=== PATIENT | male | born 1945 | race Caucasian/White ===

== ENCOUNTER → 2016-10-13 | Outpatient (CLI) | payer OTHER, BC ==
[~2016-10-13] MED LIST: ASPI81TA28 PO; ATOR-26 PO; CINN1CAP2 PO; DSWCR TOP; GLC500 PO; GLIM2TAB2 PO; LOSA1TAB PO; METO50TA7 PO; MULT-506 PO
[2016-10-13 17:28] LABS: ESTIMATED AVERAGE GLUCOSE 154 mg/dl; HA1C FLAG Normal (Normal)
[2016-10-13 19:43] LABS: BLOOD UREA NITROGEN 16 mg/dl (7-18); GLUCOSE 141 mg/dl (70-99)
[2016-10-13 19:44] LABS: ALT/SGPT 42 U/L (12-78); AST/SGOT 24 U/L (15-37); BUN/CREATININE RATIO 17.4 (10-20); CALCIUM 8.9 mg/dl (8.5-10.1); CARBON DIOXIDE 25 mmol/L (21-32); CHLORIDE 105 mmol/L (98-107); CHOLESTEROL 130 mg/dl (0-200); CREATININE 0.93 mg/dl (0.60-1.40); SODIUM 140 mmol/L (136-145)
[2016-10-13 19:46] LABS: ALB/GLOB RATIO 1.4 (0.9-2); ALKALINE PHOSPHATASE 76 U/L (45-117); CHOLESTEROL/HDL RATIO 4.2; HDL CHOLESTEROL 31 mg/dl; LDL CHOLESTEROL CALCULATED 79 mg/dl; TRIGLYCERIDES 100 mg/dl (0-150); VERY LOW DENSITY LIPOPROT CALC 20 mg/dl
== END | disposition home or self-care (01) ==
LOC: C.LABBFT 12:10
PROVIDERS: ATTEND Internal Medicine
DX: E11.51 Type 2 diabetes mellitus with diabetic peripheral angiopathy without gangrene (principal)

== ENCOUNTER → 2017-03-30 | Outpatient (CLI) | payer BC, OTHER ==
[2017-03-30 17:39] LABS: HEMATOCRIT 44.6 % (42-52); MEAN CELL VOLUME 89.2 fL (80-100); MEAN CORPUSCULAR HEMOGLOBIN 31.2 pg (25-34); PLATELET COUNT 189 K/uL (130-400); WHITE BLOOD COUNT 6.43 K/uL (4.8-10.8)
[2017-03-30 18:57] LABS: ALT/SGPT 48 U/L (12-78); BLOOD UREA NITROGEN 15 mg/dl (7-18); CALCIUM 9.4 mg/dl (8.5-10.1); CARBON DIOXIDE 27 mmol/L (21-32); CHLORIDE 107 mmol/L (98-107); CHOLESTEROL 152 mg/dl (0-200); CREATININE 0.83 mg/dl (0.60-1.40); GLUCOSE 196 mg/dl (70-99); POTASSIUM 4.7 mmol/L (3.5-5.1); SODIUM 141 mmol/L (136-145)
[2017-03-30 19:08] LABS: ALB/GLOB RATIO 1.2 (0.9-2); ALKALINE PHOSPHATASE 103 U/L (45-117); AST/SGOT 26 U/L (15-37); CHOLESTEROL/HDL RATIO 5.6; HDL CHOLESTEROL 27 mg/dl; LDL CHOLESTEROL CALCULATED 95 mg/dl; TRIGLYCERIDES 151 mg/dl (0-150); VERY LOW DENSITY LIPOPROT CALC 30 mg/dl
[2017-03-31 06:32] LABS: ESTIMATED AVERAGE GLUCOSE 169 mg/dl; HA1C FLAG Normal (Normal)
== END | disposition home or self-care (01) ==
LOC: C.LABBFT 11:31
PROVIDERS: ATTEND Internal Medicine
DX: E11.51 Type 2 diabetes mellitus with diabetic peripheral angiopathy without gangrene (principal)

== ENCOUNTER → 2017-10-05 | Outpatient (CLI) | payer OTHER, BC ==
[~2017-10-05] MED LIST changes: -METO50TA7 PO; +METO50TA8 PO
[2017-10-05 17:06] LABS: HEMATOCRIT 46.4 % (42-52); HEMOGLOBIN 16.4 g/dL (14.0-18.0); MEAN CELL VOLUME 90.4 fL (80-100); MEAN CORPUSCULAR HGB CONC 35.3 g/dl (32-36); MEAN PLATELET VOLUME 10.6 fL (7.4-10.4); PLATELET COUNT 194 K/uL (130-400); RED CELL DISTRIBUTION WIDTH SD 42.9 fL (36.4-46.3); WHITE BLOOD COUNT 7.76 K/uL (4.8-10.8)
[2017-10-05 18:50] LABS: ALBUMIN 3.6 gm/dl (3.4-5.0); ALT/SGPT 46 U/L (12-78); AST/SGOT 20 U/L (15-37); BLOOD UREA NITROGEN 15 mg/dl (7-18); CALCIUM 8.6 mg/dl (8.5-10.1); CARBON DIOXIDE 29 mmol/L (21-32); CREATININE 1.03 mg/dl (0.60-1.40); GLUCOSE 109 mg/dl (70-99); POTASSIUM 4.5 mmol/L (3.5-5.1); SODIUM 141 mmol/L (136-145)
[2017-10-05 19:01] LABS: ALKALINE PHOSPHATASE 86 U/L (45-117); CHOLESTEROL 117 mg/dl (0-200); LDL CHOLESTEROL CALCULATED 66 mg/dl; TOTAL PROTEIN 6.7 gm/dl (6.4-8.2)
[2017-10-06 06:16] LABS: HEMOGLOBIN A1C 6.9 % (4.5-5.6)
== END | disposition home or self-care (01) ==
LOC: C.LABBFT 15:23
PROVIDERS: ATTEND Internal Medicine
DX: E11.51 Type 2 diabetes mellitus with diabetic peripheral angiopathy without gangrene (principal); I10 Essential (primary) hypertension; Z12.5 Encounter for screening for malignant neoplasm of prostate

== ENCOUNTER → 2018-05-01 | Outpatient (CLI) | payer OTHER, BC ==
[2018-05-01 17:43] LABS: ALBUMIN 3.9 gm/dl (3.4-5.0); ALKALINE PHOSPHATASE 105 U/L (45-117); ALT/SGPT 52 U/L (12-78); AST/SGOT 25 U/L (15-37); BLOOD UREA NITROGEN 15 mg/dl (7-18); CALCIUM 8.5 mg/dl (8.5-10.1); CARBON DIOXIDE 25 mmol/L (21-32); CHOLESTEROL 158 mg/dl (0-200); CREATININE 0.92 mg/dl (0.60-1.40); GLUCOSE 296 mg/dl (70-99); LDL CHOLESTEROL CALCULATED 62 mg/dl; POTASSIUM 4.3 mmol/L (3.5-5.1); SODIUM 136 mmol/L (136-145); TOTAL PROTEIN 6.6 gm/dl (6.4-8.2)
[2018-05-02 07:11] LABS: HEMOGLOBIN A1C 8.3 % (4.5-5.6)
== END | disposition home or self-care (01) ==
LOC: C.LABBFT 15:14
PROVIDERS: ATTEND Physician Assistant Medical
DX: E11.9 Type 2 diabetes mellitus without complications (principal)

== ENCOUNTER 2022-10-20 17:59 | Inpatient (IN) ==
[2022-10-20] MEDS ORDERED: SODIUM CHLORIDE 0.9% 1000ML 1,000 ML IV SCH (18:45)
[2022-10-20 20:06] LABS: Basophils # (auto) 0.05 K/uL (0-0.2); Basophils % (auto) 0.4 %; Eosinophils # (auto) 0.03 K/uL (0-0.50); Eosinophils % (auto) 0.2 %; Hematocrit (blood only) 46.6 % (40.1-51.0); Hemoglobin 16.4 g/dl (14.0-18.0); Immature Granulocytes # (auto) 0.07 K/uL (0.00-0.02); Immature Granulocytes % (auto) 0.5 %; Lymphocytes # (auto) 0.47 K/uL (1.2-3.4); Lymphocytes % (auto) 3.5 %; Mean Corpuscular Hgb Conc 35.2 g/dL (32.0-36.0); Mean Corpuscular Volume 88.1 fL (80.0-100.0); Monocytes # (auto) 1.12 K/uL (0.24-0.82); Monocytes % (auto) 8.4 %; Neutrophils # (auto) 11.66 K/uL (1.4-6.5); Platelet Count 144 K/uL (130-400); RDW Coefficient of Variation 13.1 % (11.5-14.5); RDW Standard Deviation 42.1 fL (36.4-46.3); Red Blood Count 5.29 M/uL (4.63-6.08)
[2022-10-20 20:33] LABS: Alanine Aminotransferase 489 U/L (7-52); Albumin Globulin Ratio 1.5 (0.9-2); Alkaline Phosphatase 140 U/L (34-104); Anion Gap 9 (3-11); Aspartate Aminotransferase 403 U/L (13-39); BUN Creatinine Ratio 23.5 (10-20); Bilirubin,Total 1.4 mg/dl (0.2-1.0); Blood Urea Nitrogen 20 mg/dl (6-23); Calcium 9.2 mg/dl (8.5-10.1); Carbon Dioxide 24 mmol/L (21-32); Chloride 102 mmol/L (98-107); Est GFR (African American) 96.1 ml/min; Est GFR (Non-African American) 82.9 ml/min; Globulin 2.7 gm/dl (2.5-4.0); Glucose 349 mg/dl (70-99(Fasting)); Potassium 4.4 mmol/L (3.5-5.1); Sodium 135 mmol/L (136-145); Total Protein 6.7 gm/dl (6.0-8.3)
[2022-10-20 21:11] LABS: Appearance Urine Clear (Clear); Bacteria Urine Automated Negative (Negative); Bilirubin Urine Negative (Negative); Blood Urine Negative (Negative); Cast Urine Automated 0 /lpf (0-5); Color Urine Dark Yellow; Epithelial Cell Urine Auto 0-5 /lpf (0-5); Glucose Urine UA 3+ (Negative); Ketones Urine 1+ (Negative); Leukocyte Esterase Urine Negative (Negative); Nitrite Urine Negative (Negative); Protein Urine Trace (Negative); RBC Urine Automated 0-4 /hpf (0-4); Specific Gravity Urine 1.043 (1.000-1.030); Urobilinogen Urine Negative (Negative); pH Urine 5.5 (4.5-7.5)
--- NOTE | 2022-10-20 22:00 | Emergency Department Note ---
Impression & Plan Hyperglycemia, Flu-like symptoms, Leukocytosis, Pneumonia, Influenza A, Elevated lactic acid level, Rigors ED Provider Note NAME: NICOLE HENDRIX AGE: 77 SEX: M : 1945 ARRIVES VIA: Ambulance INFORMANT: [Patient][family] ED PROVIDER(S): [Linden Pickens MD] CHIEF COMPLAINT: Hyperglycemia HISTORY OF PRESENT ILLNESS: The patient is a 77-year-old male who states that about 5 hours ago while eating dinner, he suddenly began having shakes and felt cold. The patient had a blood sugar in the 400s. The patient was brought for evaluation. There has been no abdominal or chest pain. No vomiting or diarrhea, no urinary complaints. The patient did have a cold about a week ago but feels he is recovering. He had felt fine earlier in the day. PMHx/PSHx: See Below SOCIAL HISTORY: See Below. PHYSICAL EXAM: GENERAL: Patient is in no acute distress. HEENT: No acute trauma, normocephalic atraumatic, mucous membranes moist, no nasal congestion. NECK: No stridor, no adenopathy, no meningismus, trachea is midline. LUNGS: Diminished breath sounds bilaterally with an occasional scattered crackle, no wheezing, no respiratory distress HEART: Mildly tachycardic, slightly irregular rhythm. No murmurs. ABDOMEN: Soft, nontender, bowel sounds positive, no peritonitis. EXTREMITIES: No cyanosis or edema, full range of motion of all the joints without pain or difficulty, no signs for acute trauma. NEUROLOGIC: Oriented x 3, no acute motor or sensory deficits, no focal weakness. SKIN: No rash, no jaundice, no diaphoresis. Skin seems warm to touch. DIFFERENTIAL DIAGNOSIS: Sepsis, UTI, pyelonephritis, pneumonia, COVID-19, RSV, influenza, metabolic abnormality, hyperglycemia, electrolyte abnormality, cardiac ischemia, cellulitis, bacteremia, as well as other pathologies. EMERGENCY DEPARTMENT COURSE/PROCEDURES: Prior/Outside records reviewed: EMS records. ECG per my interpretation: Indication was tachycardia. The ECG shows a very poor baseline and artifact but the rhythm appears to be sinus tachycardia with PACs. The rate is 101. There is an old septal infarct. There are inverted T waves noted in the lateral leads. No obvious ST elevation. No PVCs. The QTc is 357. Compared to an ECG from 10 October 2011, the rate has increased, PACs are now present. Continuous Cardiac Monitoring per my interpretation: An order was placed for continuous cardiac monitoring. The monitor shows a rate of 102 with sinus tachycardia and PACs. MEDICAL DECISION MAKING: There is a mild leukocytosis, this certainly could be consistent with infection. There was a normal hemoglobin and platelet count. Sugar was high at around 350. Lactic acid level was elevated. This lactic acid elevation could suggest infection versus dehydration. There were some elevated liver enzymes. No pancreatitis. Urinalysis shows glucose, no infection. COVID and RSV test were negative. Influenza test was positive. Chest film shows a potential patchy infiltrate at the left lower lung. There was no pneumothorax. Abdominal and pelvis CT did not show any evidence for an acute surgical process. On exam, the patient was slightly tachycardic and warm to the touch. The patient was given IV saline, 2 L in total. He was given oral Tamiflu for the influenza finding. He received IV cefepime as empiric antibiotic coverage, he was given oral Tylenol. Presents with what sounds like rigors. He has a leukocytosis. He is influenza A positive. He is hyperglycemic and likely somewhat dehydrated. I am concerned about the start of a pneumonia based on this chest x-ray and his complaints. Hospitalization is warranted. I spoke with the patient and case management, the on-call hospitalist was consulted. DISPOSITION: The patient's finding and presentation warrant a hospital stay. Past Med/Surg History Medical History CAD (coronary artery disease) Cataract Chronic obstructive pulmonary disease history obtained from pt's ; pt unable to verify; no inh PT AND DENY COPD UPON PAT PHONE INTERVIEW 08/24/20 DM type 2 (diabetes mellitus, type 2) NIDDM History of colon polyps History of lichen planus History of prostate cancer brachytherapy 2009 Hypertension PATIENT DENIES Myocardial Infarction 1991 Surgical History History of cardiac cath History of carpal tunnel release History of colonoscopy History of left cataract surgery History of prostate biopsy History of surgery on extremity History of tooth extraction S/P CABG x 3 (1992) Family History Brother Hepatitis Coronary heart disease Alcoholism Myocardial infarction Father Laryngeal cancer Alcoholism Emphysema, unspecified Tobacco use Throat cancer Sister Diabetes Mother Cirrhosis Daughter Colorectal cancer Other No family history of adverse response to anesthesia Denies family history of Ovarian cancer Prostate cancer Breast cancer Social History Smoking Status: Former smoker Tobacco Type: Cigarettes Age Started Using Tobacco: 6; Age Quit Using Tobacco: 48; packs per day: 1; Cigarettes Per Day: 20; Second Hand Exposure: No; Hx Alcohol Use: Yes Alcohol type: wine Alcohol Intake Frequency: Monthly or Less Hx Substance Use: No Preferred Language: Tajik Communication Ability: Effective Visual Impairment: No Limitations Hearing Ability: Normal Vp Talent Management Required: No Beliefs That Will Affect Care: None marital status: Current Living Situation: Spouse current occupational status: employed current occupation: catering truck driver Feels Safe at Home: Yes caffeine: Yes Dental Care, Regularly: No Physical Activity Frequency: Does not Exercise Seatbelt Use: always Sunscreen Use: No Assistive Devices: Denture - Upper, Denture - Lower and Glasses Allergies Allergies Allergy/AdvReac Type Severity Reaction Status Date / Time No Known Allergies Allergy Verified 10/20/22 21:40 Home Meds Home Medications Medication Instructions Recorded Confirmed lancets 33 gauge (OneTouch Delica #100 ea 04/29/19 07/26/22 Lancets) aspirin 81 mg tablet,delayed 81 mg PO QAM 05/25/20 10/20/22 release (Adult Low Dose Aspirin) desonide 0.05 % topical cream 1 appln topical BID PRN LICHEN 08/24/20 10/20/22 PLANUS Previous Rx's Medication Instructions Recorded blood sugar diagnostic (VULCUNTouch #100 ea 01/27/20 Verio test strips) triamcinolone acetonide 0.5 % 1 applic topical TID PRN LICHEN 05/17/21 topical cream PLANUS #15 grams atorvastatin 80 mg tablet 80 mg PO HS #90 tabs 12/13/21 metoprolol succinate 50 mg 50 mg PO BID #180 tabs 03/04/22 tablet,extended release 24 hr glimepiride 4 mg tablet 4 mg PO BID #180 tabs 09/07/22 losartan 25 mg tablet 25 mg PO QAM #90 tabs 09/07/22 metformin 1,000 mg tablet 1,000 mg PO BID #180 tabs 09/07/22 Results & Data (ED) Vital Signs Vital Signs - 24 hr 10/20/22 18:27 10/20/22 21:13 10/20/22 21:29 Temperature 37.3 C 37.3 C Temperature Source Temporal Artery Scan Oral Pulse Rate 102 H Pulse Rate [Apical] Pulse Rate from SpO2 Sensor Respiratory Rate 19 20 Respiratory Effort / Characteristics Non-Labored Spontaneous Non-Labored Respiratory Depth Normal Normal Respiratory Pattern Regular Regular Blood Pressure 148/72 H Blood Pressure [Right Arm] 146/71 H Blood Pressure Mean 97 Blood Pressure Mean [Right Arm] 96 Blood Pressure Position Sitting Blood Pressure Position [Right Arm] Pulse Oximetry 92 91 Oxygen Delivery Method Room Air Room Air Sepsis Recent Fever Within 48 Hours No Sepsis New/Unexplained Change in Mental Status No Sepsis Action Taken by Nursing No Action Required 10/20/22 21:30 10/20/22 22:30 10/20/22 22:40 Temperature Temperature Source Pulse Rate 106 H 108 H Pulse Rate [Apical] 102 H Pulse Rate from SpO2 Sensor 106 H 107 H Respiratory Rate 20 20 22 Respiratory Effort / Characteristics Respiratory Depth Respiratory Pattern Blood Pressure Blood Pressure [Right Arm] 154/72 H Blood Pressure Mean Blood Pressure Mean [Right Arm] 99 Blood Pressure Position Blood Pressure Position [Right Arm] Lying Pulse Oximetry 93 94 93 Oxygen Delivery Method Room Air Sepsis Recent Fever Within 48 Hours Sepsis New/Unexplained Change in Mental Status Sepsis Action Taken by [place]way Medications Current Medication List: was personally reviewed by me Laboratory Data Attestation: I reviewed the patient's lab results. 10/20/22 19:53 10/20/22 19:53 Lab Results 10/20/22 10/20/22 10/20/22 Range/Units 18:32 19:49 19:53 WBC 13.40 H (4.8-10.8) K/ul RBC 5.29 (4.63-6.08) M/uL Hgb 16.4 (14.0-18.0) g/dl Hct 46.6 (40.1-51.0) % MCV 88.1 (80.0-100.0) fL MCH 31.0 (25.0-34.0) pg MCHC 35.2 (32.0-36.0) g/dL RDW Std Deviation 42.1 (36.4-46.3) fL RDW Coeff of [place] 13.1 (11.5-14.5) % Plt Count 144 (130-400) K/uL MPV 10.0 (9.4-12.4) fL Immature Gran % (Auto) 0.5 % Neut % (Auto) 87.0 % Lymph % (Auto) 3.5 % [place] % (Auto) 8.4 % Eos % (Auto) 0.2 % Baso % (Auto) 0.4 % Neut # (Auto) 11.66 H (1.4-6.5) K/uL Lymph # (Auto) 0.47 L (1.2-3.4) K/uL [place] # (Auto) 1.12 H (0.24-0.82) K/uL Eos # (Auto) 0.03 (0-0.50) K/uL Baso # (Auto) 0.05 (0-0.2) K/uL Immature Gran # (Auto) 0.07 H (0.00-0.02) K/uL Sodium (136-145) mmol/L Potassium (3.5-5.1) mmol/L Chloride (98-107) mmol/L Carbon Dioxide (21-32) mmol/L Anion Gap (3-11) BUN (6-23) mg/dl Creatinine (0.6-1.4) mg/dl Est Cr Clr Drug Dosing Est GFR ( Amer) ml/min Est GFR (Non-Af Amer) ml/min BUN/Creatinine Ratio (10-20) Glucose (70-99(Fasting)) mg/dl POC Glucose 383 H* (70-99) mg/dl Lactate (0.4-2.0) mmol/L Calcium (8.5-10.1) mg/dl Total Bilirubin (0.2-1.0) mg/dl AST (13-39) U/L ALT (7-52) U/L Alkaline Phosphatase (34-104) U/L Total Protein (6.0-8.3) gm/dl Albumin (3.4-5.0) gm/dl Globulin (2.5-4.0) gm/dl Albumin/Globulin Ratio (0.9-2) Lipase (11-82) U/L Urine Color Urine Appearance (Clear) Urine pH (4.5-7.5) Ur Specific [place] (1.000-1.030) Urine Protein (Negative) Urine Glucose (UA) (Negative) Urine Ketones (Negative) Urine Blood (Negative) Urine Nitrite (Negative) Urine Bilirubin (Negative) Urine Urobilinogen (Negative) Ur Leukocyte Esterase (Negative) Urine WBC (Auto) (0-5) /hpf Urine RBC (Auto) (0-4) /hpf U Hyaline Cast (Auto) (0-5) /lpf U Epithel Cells (Auto) (0-5) /lpf Urine Bacteria (Auto) (Negative) SARS-CoV-2 (PCR) (Negative) Influenza Type A (PCR) (Neg) Influenza Type B (PCR) (Neg) RSV (RT-PCR) (Neg) SARS-CoV-2, RNA, NAAT NEGATIVE (NEGATIVE) 10/20/22 10/20/22 10/20/22 Range/Units 19:53 19:53 20:55 WBC (4.8-10.8) K/ul RBC (4.63-6.08) M/uL Hgb (14.0-18.0) g/dl Hct (40.1-51.0) % MCV (80.0-100.0) fL MCH (25.0-34.0) pg MCHC (32.0-36.0) g/dL RDW Std Deviation (36.4-46.3) fL RDW Coeff of [place] (11.5-14.5) % Plt Count (130-400) K/uL MPV (9.4-12.4) fL Immature Gran % (Auto) % Neut % (Auto) % Lymph % (Auto) % [place] % (Auto) % Eos % (Auto) % Baso % (Auto) % Neut # (Auto) (1.4-6.5) K/uL Lymph # (Auto) (1.2-3.4) K/uL [place] # (Auto) (0.24-0.82) K/uL Eos # (Auto) (0-0.50) K/uL Baso # (Auto) (0-0.2) K/uL Immature Gran # (Auto) (0.00-0.02) K/uL Sodium 135 L (136-145) mmol/L Potassium 4.4 (3.5-5.1) mmol/L Chloride 102 (98-107) mmol/L Carbon Dioxide 24 (21-32) mmol/L Anion Gap 9 (3-11) BUN 20 (6-23) mg/dl Creatinine 0.85 (0.6-1.4) mg/dl Est Cr Clr Drug Dosing Not Reportable Est GFR ( Amer) 96.1 ml/min Est GFR (Non-Af Amer) 82.9 ml/min BUN/Creatinine Ratio 23.5 H (10-20) Glucose 349 H* (70-99(Fasting)) mg/dl POC Glucose (70-99) mg/dl Lactate (0.4-2.0) mmol/L Calcium 9.2 (8.5-10.1) mg/dl Total Bilirubin 1.4 H (0.2-1.0) mg/dl AST 403 H (13-39) U/L ALT 489 H (7-52) U/L Alkaline Phosphatase 140 H (34-104) U/L Total Protein 6.7 (6.0-8.3) gm/dl Albumin 4.0 (3.4-5.0) gm/dl Globulin 2.7 (2.5-4.0) gm/dl Albumin/Globulin Ratio 1.5 (0.9-2) Lipase 32 (11-82) U/L Urine Color Dark Yellow Urine Appearance Clear (Clear) Urine pH 5.5 (4.5-7.5) Ur Specific [place] 1.043 H (1.000-1.030) Urine Protein Trace H (Negative) Urine Glucose (UA) 3+ H (Negative) Urine Ketones 1+ H (Negative) Urine Blood Negative (Negative) Urine Nitrite Negative (Negative) Urine Bilirubin Negative (Negative) Urine Urobilinogen Negative (Negative) Ur Leukocyte Esterase Negative (Negative) Urine WBC (Auto) 1-5 (0-5) /hpf Urine RBC (Auto) 0-4 (0-4) /hpf U Hyaline Cast (Auto) 0 (0-5) /lpf U Epithel Cells (Auto) 0-5 (0-5) /lpf Urine Bacteria (Auto) Negative (Negative) SARS-CoV-2 (PCR) (Negative) Influenza Type A (PCR) (Neg) Influenza Type B (PCR) (Neg) RSV (RT-PCR) (Neg) SARS-CoV-2, RNA, NAAT (NEGATIVE) 10/20/22 10/20/22 10/20/22 Range/Units 21:21 21:23 21:33 WBC (4.8-10.8) K/ul RBC (4.63-6.08) M/uL Hgb (14.0-18.0) g/dl Hct (40.1-51.0) % MCV (80.0-100.0) fL MCH (25.0-34.0) pg MCHC (32.0-36.0) g/dL RDW Std Deviation (36.4-46.3) fL RDW Coeff of [place] (11.5-14.5) % Plt Count (130-400) K/uL MPV (9.4-12.4) fL Immature Gran % (Auto) % Neut % (Auto) % Lymph % (Auto) % [place] % (Auto) % Eos % (Auto) % Baso % (Auto) % Neut # (Auto) (1.4-6.5) K/uL Lymph # (Auto) (1.2-3.4) K/uL [place] # (Auto) (0.24-0.82) K/uL Eos # (Auto) (0-0.50) K/uL Baso # (Auto) (0-0.2) K/uL Immature Gran # (Auto) (0.00-0.02) K/uL Sodium (136-145) mmol/L Potassium (3.5-5.1) mmol/L Chloride (98-107) mmol/L Carbon Dioxide (21-32) mmol/L Anion Gap (3-11) BUN (6-23) mg/dl Creatinine (0.6-1.4) mg/dl Est Cr Clr Drug Dosing Est GFR ( Amer) ml/min Est GFR (Non-Af Amer) ml/min BUN/Creatinine Ratio (10-20) Glucose (70-99(Fasting)) mg/dl POC Glucose 310 H* 292 H (70-99) mg/dl Lactate (0.4-2.0) mmol/L Calcium (8.5-10.1) mg/dl Total Bilirubin (0.2-1.0) mg/dl AST (13-39) U/L ALT (7-52) U/L Alkaline Phosphatase (34-104) U/L Total Protein (6.0-8.3) gm/dl Albumin (3.4-5.0) gm/dl Globulin (2.5-4.0) gm/dl Albumin/Globulin Ratio (0.9-2) Lipase (11-82) U/L Urine Color Urine Appearance (Clear) Urine pH (4.5-7.5) Ur Specific [place] (1.000-1.030) Urine Protein (Negative) Urine Glucose (UA) (Negative) Urine Ketones (Negative) Urine Blood (Negative) Urine Nitrite (Negative) Urine Bilirubin (Negative) Urine Urobilinogen (Negative) Ur Leukocyte Esterase (Negative) Urine WBC (Auto) (0-5) /hpf Urine RBC (Auto) (0-4) /hpf U Hyaline Cast (Auto) (0-5) /lpf U Epithel Cells (Auto) (0-5) /lpf Urine Bacteria (Auto) (Negative) SARS-CoV-2 (PCR) NEGATIVE (Negative) Influenza Type A (PCR) Positive A* (Neg) Influenza Type B (PCR) Negative (Neg) RSV (RT-PCR) Negative (Neg) SARS-CoV-2, RNA, NAAT (NEGATIVE) 10/20/22 10/20/22 10/20/22 Range/Units 21:49 23:41 23:46 WBC (4.8-10.8) K/ul RBC (4.63-6.08) M/uL Hgb (14.0-18.0) g/dl Hct (40.1-51.0) % MCV (80.0-100.0) fL MCH (25.0-34.0) pg MCHC (32.0-36.0) g/dL RDW Std Deviation (36.4-46.3) fL RDW Coeff of [place] (11.5-14.5) % Plt Count (130-400) K/uL MPV (9.4-12.4) fL Immature Gran % (Auto) % Neut % (Auto) % Lymph % (Auto) % [place] % (Auto) % Eos % (Auto) % Baso % (Auto) % Neut # (Auto) (1.4-6.5) K/uL Lymph # (Auto) (1.2-3.4) K/uL [place] # (Auto) (0.24-0.82) K/uL Eos # (Auto) (0-0.50) K/uL Baso # (Auto) (0-0.2) K/uL Immature Gran # (Auto) (0.00-0.02) K/uL Sodium (136-145) mmol/L Potassium (3.5-5.1) mmol/L Chloride (98-107) mmol/L Carbon Dioxide (21-32) mmol/L Anion Gap (3-11) BUN (6-23) mg/dl Creatinine (0.6-1.4) mg/dl Est Cr Clr Drug Dosing Est GFR ( Amer) ml/min Est GFR (Non-Af Amer) ml/min BUN/Creatinine Ratio (10-20) Glucose (70-99(Fasting)) mg/dl POC Glucose 237 H (70-99) mg/dl Lactate 2.7 H* 3.1 H* (0.4-2.0) mmol/L Calcium (8.5-10.1) mg/dl Total Bilirubin (0.2-1.0) mg/dl AST (13-39) U/L ALT (7-52) U/L Alkaline Phosphatase (34-104) U/L Total Protein (6.0-8.3) gm/dl Albumin (3.4-5.0) gm/dl Globulin (2.5-4.0) gm/dl Albumin/Globulin Ratio (0.9-2) Lipase (11-82) U/L Urine Color Urine Appearance (Clear) Urine pH (4.5-7.5) Ur Specific [place] (1.000-1.030) Urine Protein (Negative) Urine Glucose (UA) (Negative) Urine Ketones (Negative) Urine Blood (Negative) Urine Nitrite (Negative) Urine Bilirubin (Negative) Urine Urobilinogen (Negative) Ur Leukocyte Esterase (Negative) Urine WBC (Auto) (0-5) /hpf Urine RBC (Auto) (0-4) /hpf U Hyaline Cast (Auto) (0-5) /lpf U Epithel Cells (Auto) (0-5) /lpf Urine Bacteria (Auto) (Negative) SARS-CoV-2 (PCR) (Negative) Influenza Type A (PCR) (Neg) Influenza Type B (PCR) (Neg) RSV (RT-PCR) (Neg) SARS-CoV-2, RNA, NAAT (NEGATIVE) Administered Medications Discontinued Medications Sodium Chloride (Nss 1000ml) 1,000 mls @ 999 mls/hr IV .[id number] SAYRA Stop: 10/20/22 19:45 Last Infusion: 10/20/22 22:47 Dose: 0 mls/hr Documented By: Admin: 10/20/22 19:56 Dose: 999 mls/hr Documented By: KETAN Sodium Chloride (Nss 1000ml) 500 mls @ 999 mls/hr IV .Q31M ONE Stop: 10/20/22 22:46 Last Admin: 10/20/22 23:08 Dose: 999 mls/hr Documented By: Cefepime HCl (Maxipime) 2,000 mg in 20 mls @ 5 mls/min IV NOW STA; Protocol Stop: 10/20/22 22:19 Last Admin: 10/20/22 22:24 Dose: 5 mls/min Documented By: Ioversol (Optiray 350 100ml) 83 ml IV ONCE ONE Stop: 10/20/22 23:00 Last Admin: 10/20/22 23:00 Dose: 83 ml Documented By: SRIKANTH Oseltamivir Phosphate (Oseltamivir Phosphate 75 Mg Cap) 75 mg PO NOW STA; Protocol Stop: 10/20/22 22:48 Last Admin: 10/20/22 23:09 Dose: 75 mg Documented By: Imaging Data My Impression: Chest x-ray: There is a potential patchy infiltrate to the left mid to lower lung. No pneumothorax. Chronic changes also noted. Radiologist's Impression: CT ABDOMEN & PELVIS With Contrast: No evidence of acute abdominal or pelvic process Radiologist: Luis Alberto Jaramillo M.D. Discharge Plan Visit Data Chief Complaint: Hyperglycemia Stated Complaint: hypergylcemia ED Provider: Linden Pickens Discharge Problem: Hyperglycemia, Flu-like symptoms, Leukocytosis, Pneumonia, Influenza A, Elevated lactic acid level, Rigors Patient Disposition: Admitted As Inpatient Condition: Fair Forms Stand Alone Forms: My [facility], Virtual Emergency Department, Important Visit Information Prescriptions Prescriptions: No Action (DME) OneTouch Verio test strips Strip See Dose Instructions .ROUTE .MEDSUPPLY Qty: 100 3RF Rx Instructions: test once daily triamcinolone acetonide 0.5 % cream 1 applic topical TID PRN (Reason: LICHEN PLANUS) Qty: 15 5RF atorvastatin 80 mg tablet 80 mg PO HS Qty: 90 3RF metoprolol succinate 50 mg tablet extended release 24 hr 50 mg PO BID Qty: 180 3RF glimepiride 4 mg tablet 4 mg PO BID Qty: 180 3RF losartan 25 mg tablet 25 mg PO QAM Qty: 90 3RF metformin 1,000 mg tablet 1,000 mg PO BID Qty: 180 3RF (DME) lancets [OneTouch Delica Lancets] 33 gauge misc See Dose Instructions .ROUTE .MEDSUPPLY Qty: 100 Rx Instructions: test once daily aspirin [Adult Low Dose Aspirin] 81 mg tablet,delayed release (DR/EC) 81 mg PO QAM desonide 0.05 % cream 1 appln topical BID PRN (Reason: LICHEN PLANUS) Referrals Referrals: Tosha Nelson MD [Primary Care Provider] -
[2022-10-20] MEDS ORDERED: CEFEPIME 2,000 MG/20 ML VIAL IV STA (22:16)
[2022-10-20] MEDS ORDERED: SODIUM CHLORIDE 0.9% 1000ML 500 ML IV ONE (22:16)
[2022-10-20 22:30] LABS: Influenza B virus by PCR Negative (Neg); RSV by PCR Negative (Neg); SARS CoV2 RNA(COVID-19) Ceph NEGATIVE (Negative)
[2022-10-20] MEDS ORDERED: OSELTAMIVIR PHOSPHATE 75 MG CAP PO STA (22:47)
[2022-10-20 22:50] LABS: Influenza A virus by PCR Positive (Neg)
[2022-10-20] MEDS ORDERED: OPTIRAY 350 100ml IV ONE (22:59)
[2022-10-21] MEDS ORDERED: SODIUM CHLORIDE 0.9% 1000ML 500 ML IV ONE (00:24)
[2022-10-21] MEDS ORDERED: ACETAMINOPHEN 500 MG TAB PO STA (00:25)
--- NOTE | 2022-10-21 00:43 | History & Physical Report ---
Date of Service October 21, 2022 Assessment & Plan (1) Hyperglycemia: Plan: 77-year-old man who presents with sudden shaking chills. Now admitted for management of hyperglycemia, transaminitis, and influenza A. Hyperglycemia -History of DM2. Takes metformin 1000 mg twice daily, glimepiride 4 mg tablet twice daily. BSG 349 on admission. -Patient reports adherence to medications. However, most recent hemoglobin A1c of 9.02 January 2022, suggesting either nonadherence or poor control on current regimen. Could also be due to recent infection, the patient states he was already improving. -1+ ketonuria, 3+ glucosuria on UA -Held home p.o. meds on admission. * Admit to [facility] without telemetry. Made n.p.o. * IV LR at 80 mL/h * Initiated bolus SQ insulin protocol. Trend blood glucose * Discontinue IVF, start diet once glycemic control achieved (<250) * Hemoglobin A1c pending * Trend daily labs Influenza A/pneumonia -Respiratory panel positive. Patient reports he had URI last week but got better. -WBC 13.4. Lactate 3.1. Left lower lobe infiltrate -Received 1 dose of Tamiflu, cefepime 2 g x 1 in the ED. * Continue Tamiflu twice daily x5 days Transaminitis/elevated LFTs -AST/ALT 403/489. Alk phos 140, total bilirubin 1.4 -CT abdomen pelvis negative for acute infectious process -No past medical history of liver disease, hepatitis, or cirrhosis. Review of chart indicates that he consumes alcohol less than once a month. * Trend daily labs * Consider repeat CT abdomen pelvis if clinical symptoms, hepatic labs continue to worsen without obvious cause Coronary artery disease -History of HI. -Managed on aspirin, metoprolol succinate, losartan, and atorvastatin * Metoprolol succinate 50 mg daily * Losartan 25 mg daily * Atorvastatin 80 mg daily * Aspirin 81 mg daily Code: Full code Dispo: Med-Surg FEN/GI: NPO. mIVF LR DVT Prophylaxis: Lovenox 40 mg q24h PT/OT: Consults: None (2) Leukocytosis: (3) Flu-like symptoms: (4) DM type 2 (diabetes mellitus, type 2): (5) Hypertension: (6) CAD (coronary artery disease): (7) Influenza A: (8) Elevated lactic acid level: (9) Rigors: History of Present Illness Primary Care Provider: Tosha Nelson MD Kevin is a 77 year old man with a history of DM2, COPD, HTN, and CAD, who presents to the hospital with sudden onset shaking chills during dinner about 8 hours ago. ED workup was notable for tachycardia, WBC of 13.4, lactate of 3.1, elevated transaminases (AST/ULO636/489), alk phos of 140 and serum glucose of 349. UA revealed trace proteinuria, 3+ glucosuria, 1+ ketonuria, but no nitrites or LE. EKG showed sinus tachycardia with rates in the low 100s. CXR showed left lower lobe hazy infiltration. CT abdomen pelvis was negative for acute process. He received 2 IV normal saline boluses of 0.5 L and 1 L. He also received IV cefepime out of concern for pneumonia following the CXR. He received 1 dose of Tamiflu after respiratory panel returned positive for influenza A. On admission, he corroborated ER HPI. ROS + only for fatigue. He denies shortness of breath, cough, chest pain, headache, nausea, vomiting, abdominal p ain, constipation, or diarrhea. Allergies Allergy/AdvReac Type Severity Reaction Status Date / Time No Known Allergies Allergy Verified 10/20/22 21:40 Home Medications Medication Instructions Recorded Confirmed Type lancets 33 gauge ([employer]Touch Delica #100 ea 04/29/19 07/26/22 History Lancets) blood sugar diagnostic (OneTouch #100 ea 01/27/20 07/26/22 Rx Verio test strips) aspirin 81 mg tablet,delayed 81 mg PO QAM 05/25/20 10/20/22 History release (Adult Low Dose Aspirin) desonide 0.05 % topical cream 1 appln topical BID PRN LICHEN 08/24/20 10/20/22 History PLANUS triamcinolone acetonide 0.5 % 1 applic topical TID PRN LICHEN 05/17/21 10/20/22 Rx topical cream PLANUS #15 grams atorvastatin 80 mg tablet 80 mg PO HS #90 tabs 12/13/21 10/20/22 Rx metoprolol succinate 50 mg 50 mg PO BID #180 tabs 03/04/22 10/20/22 Rx tablet,extended release 24 hr glimepiride 4 mg tablet 4 mg PO BID #180 tabs 09/07/22 10/20/22 Rx losartan 25 mg tablet 25 mg PO QAM #90 tabs 09/07/22 10/20/22 Rx metformin 1,000 mg tablet 1,000 mg PO BID #180 tabs 09/07/22 10/20/22 Rx oseltamivir 75 mg capsule (Tamiflu) 75 mg PO BID 4 days #8 caps 10/21/22 Rx Past Med/Surg History Medical History CAD (coronary artery disease) Cataract Chronic obstructive pulmonary disease history obtained from pt's ; pt unable to verify; no inh PT AND DENY COPD UPON PAT PHONE INTERVIEW 08/24/20 DM type 2 (diabetes mellitus, type 2) NIDDM History of colon polyps History of lichen planus History of prostate cancer brachytherapy 2009 Hypertension PATIENT DENIES Myocardial Infarction 1991 Surgical History History of cardiac cath History of carpal tunnel release History of colonoscopy History of left cataract surgery History of prostate biopsy History of surgery on extremity History of tooth extraction S/P CABG x 3 (1992) Family History Brother Hepatitis Coronary heart disease Alcoholism Myocardial infarction Father Laryngeal cancer Alcoholism Emphysema, unspecified Tobacco use Throat cancer Sister Diabetes Mother Cirrhosis Daughter Colorectal cancer Other No family history of adverse response to anesthesia Denies family history of Ovarian cancer Prostate cancer Breast cancer Social History Smoking Status: Former smoker Tobacco Type: Cigarettes Age Started Using Tobacco: 6; Age Quit Using Tobacco: 48; packs per day: 1; Cigarettes Per Day: 20; Second Hand Exposure: No; Hx Alcohol Use: No Hx Substance Use: No Preferred Language: Kyrgyz Communication Ability: Effective Visual Impairment: No Limitations Hearing Ability: Normal Data Warehousing Engineer Required: No Beliefs That Will Affect Care: None marital status: Current Living Situation: Spouse current occupational status: employed current occupation: dedicated intermodal truck driver Feels Safe at Home: Yes caffeine: Yes Dental Care, Regularly: No Physical Activity Frequency: Does not Exercise Seatbelt Use: always Sunscreen Use: No Assistive Devices: Denture - Upper and Denture - Lower Review of Systems Review of Systems: All systems reviewed & are unremarkable except as noted in HPI & below Physical Exam Physical Exam: General: No acute distress HEENT: PERRLA. Normal conjunctiva, anicteric sclera. Oropharynx normal. Respiratory: Normal respiratory effort. Mild bibasilar crackles Cardiovascular: Tachycardic. Regular rhythm. Murmurs, gallops, or rubs. No edema. GI: Soft abdomen with normal bowel sounds heard on auscultation. Nontender x4 quadrants Neuro: Alert and oriented x3. Results & Data Results & Data ([facility]) Vital Signs (Past 12 Hours) Vital Signs Temp Pulse Pulse Resp BP BP Pulse Ox 10/20/22 22:40 108 H 22 93 10/20/22 22:30 106 H 20 94 10/20/22 21:30 102 H 20 154/72 H 93 10/20/22 21:29 37.3 C 10/20/22 21:13 20 146/71 H 91 10/20/22 18:27 37.3 C 102 H 19 148/72 H 92 O2 Del Method 10/20/22 22:40 10/20/22 22:30 10/20/22 21:30 Room Air 10/20/22 21:29 10/20/22 21:13 Room Air 10/20/22 18:27 Room Air Supervising Physician Co-Signing Physician Notes Attending addendum: I have physically seen this patient, have supervised the medical residents activities, and agree with the H&P unless as otherwise noted. Assessment and Plan: Influenza A/secondary bacterial pneumonia- Given Tamiflu 75 mg in ED and continue twice daily for 5 days Continue cefepime 2 g IV every 12 hours begun in the ED Nasal cannula oxygen, titrate to keep pulse ox 92-94% Diabetes mellitus with hyperglycemia- Holding metformin and glimepiride Placing on NovoLog SSI LR at 80 mils per hour x1 L Check hemoglobin A1c Follow serial CBC with differential and basic metabolic panel Transaminitis- CT abdomen pelvis negative Likely secondary to viral process If not improving in morning, order active hepatitis profile CAD/hypertension- Continue metoprolol succinate, losartan and aspirin Remaining orders and notations as noted Resident Activity Tracking Resident Involvement: Resident Care Provided Care Provided: Adult Hospital Medicine (1) Leukocytosis Leukocytosis type: unspecified Qualified Code(s): D72.829 - Elevated white blood cell count, unspecified
[2022-10-21] MEDS ORDERED: GLUCOSE 40% GEL 15 GM TUBE PO PRN (01:01)
[2022-10-21] MEDS ORDERED: DEXTROSE 50% 50 ML SYRINGE IV PRN (01:01)
[2022-10-21] MEDS ORDERED: GLUCOSE 10 TAB/TUBE PO PRN (01:01)
[2022-10-21] MEDS ORDERED: CARBOHYDRATES FOR HYPOGLYCEMIA PO PRN (01:01)
[2022-10-21] MEDS ORDERED: GLUCAGON FOR INJ 1 MG VIAL SQ PRN (01:01)
[2022-10-21] MEDS ORDERED: LACTATED RINGER'S 1,000 ML IV SCH (01:15)
[2022-10-21] MEDS ORDERED: INSULIN ASPART PER UNIT SC SCH ×2 (06:00→11:30)
[2022-10-21 06:46] LABS: Basophils # (auto) 0.02 K/uL (0-0.2); Basophils % (auto) 0.2 %; Eosinophils # (auto) 0.01 K/uL (0-0.50); Eosinophils % (auto) 0.1 %; Hematocrit (blood only) 38.1 % (40.1-51.0); Hemoglobin 13.6 g/dl (14.0-18.0); Immature Granulocytes # (auto) 0.05 K/uL (0.00-0.02); Immature Granulocytes % (auto) 0.4 %; Lymphocytes # (auto) 0.93 K/uL (1.2-3.4); Lymphocytes % (auto) 8.3 %; Mean Corpuscular Hemoglobin 31.2 pg (25.0-34.0); Mean Corpuscular Hgb Conc 35.7 g/dL (32.0-36.0); Mean Corpuscular Volume 87.4 fL (80.0-100.0); Mean Platelet Volume 10.2 fL (9.4-12.4); Monocytes # (auto) 0.75 K/uL (0.24-0.82); Monocytes % (auto) 6.7 %; Neutrophils # (auto) 9.41 K/uL (1.4-6.5); Neutrophils % (auto) 84.3 %; Platelet Count 134 K/uL (130-400); RDW Coefficient of Variation 13.2 % (11.5-14.5); RDW Standard Deviation 41.5 fL (36.4-46.3); Red Blood Count 4.36 M/uL (4.63-6.08); White Blood Count 11.17 K/ul (4.8-10.8)
[2022-10-21 07:16] LABS: Estimated Average Glucose 217 mg/dl; Hemoglobin A1C 9.2 % (4.5-5.6)
--- NOTE | 2022-10-21 07:21 | Hospitalist Progress Note ---
Date of Service October 21, 2022 Assessment & Plan (1) Hyperglycemia: Plan: 77-year-old man who presents with sudden shaking chills. Now admitted for management of hyperglycemia, transaminitis, and influenza A. Hyperglycemia -History of DM2. Takes metformin 1000 mg twice daily, glimepiride 4 mg tablet twice daily. BSG 349 on admission. -Patient reports adherence to medications. However, most recent hemoglobin A1c of 9.02 January 2022, suggesting either nonadherence or poor control on current regimen. Could also be due to recent infection, the patient states he was already improving. -1+ ketonuria, 3+ glucosuria on UA -Held home p.o. meds on admission. * Admit to [facility] without telemetry. Made n.p.o. * IV LR at 80 mL/h * Initiated bolus SQ insulin protocol. Trend blood glucose * Discontinue IVF, start diet once glycemic control achieved (<250) * Hemoglobin A1c pending * Trend daily labs Influenza A/pneumonia -Respiratory panel positive. Patient reports he had URI last week but got better. -WBC 13.4. Lactate 3.1. Left lower lobe infiltrate -Received 1 dose of Tamiflu, cefepime 2 g x 1 in the ED. * Continue Tamiflu twice daily x5 days Transaminitis/elevated LFTs -AST/ALT 403/489. Alk phos 140, total bilirubin 1.4 -CT abdomen pelvis negative for acute infectious process -No past medical history of liver disease, hepatitis, or cirrhosis. Review of chart indicates that he consumes alcohol less than once a month. * Trend daily labs * Consider repeat CT abdomen pelvis if clinical symptoms, hepatic labs continue to worsen without obvious cause Coronary artery disease -History of MS. -Managed on aspirin, metoprolol succinate, losartan, and atorvastatin * Metoprolol succinate 50 mg daily * Losartan 25 mg daily * Atorvastatin 80 mg daily * Aspirin 81 mg daily Code: Full code Dispo: Med-Surg FEN/GI: NPO. mIVF LR DVT Prophylaxis: Lovenox 40 mg q24h PT/OT: Consults: None (2) Leukocytosis: (3) Flu-like symptoms: (4) DM type 2 (diabetes mellitus, type 2): (5) Hypertension: (6) CAD (coronary artery disease): (7) Influenza A: (8) Elevated lactic acid level: (9) Rigors: Admission and Anticipated Discharge Date Admission Date: October 21, 2022 Results & Data Results & Data ([facility]) Vital Signs (Past 12 Hours) Vital Signs Temp Pulse Pulse Pulse Resp BP BP 10/21/22 07:08 36.6 C 66 16 117/63 10/21/22 03:29 37.6 C H 97 H 20 125/68 10/21/22 02:06 10/21/22 01:30 103 H 25 H 10/21/22 01:30 133/67 10/21/22 00:30 103 H 12 10/21/22 00:30 129/63 10/20/22 23:49 101 H 26 H 10/20/22 23:49 145/69 H 10/20/22 22:40 108 H 22 10/20/22 22:30 106 H 20 10/20/22 21:30 102 H 20 154/72 H 10/20/22 21:29 37.3 C 10/20/22 21:13 20 146/71 H Pulse Ox O2 Del Method O2 Flow Rate 10/21/22 07:08 Room Air 94 10/21/22 03:29 93 Room Air 10/21/22 02:06 Room Air 10/21/22 01:30 92 10/21/22 01:30 10/21/22 00:30 92 10/21/22 00:30 10/20/22 23:49 89 L 10/20/22 23:49 10/20/22 22:40 93 10/20/22 22:30 94 10/20/22 21:30 93 Room Air 10/20/22 21:29 10/20/22 21:13 91 Room Air (1) Leukocytosis Leukocytosis type: unspecified Qualified Code(s): D72.829 - Elevated white blood cell count, unspecified
--- NOTE | 2022-10-21 07:34 | XRay Report ---
XR chest 1V portable CLINICAL HISTORY: fever TECHNIQUE: Single frontal radiograph of the chest was obtained. Comparison: None available at the time of this dictation. FINDINGS: Median sternotomy wires are unchanged. Postsurgical changes of coronary bypass noted. Calcified aorti c knob is seen. Reticular interstitial opacities are seen. No evidence of pleural effusion or pneumot horax. IMPRESSION: No acute abnormalities and in particular no evidence of pneumonia. ACT 112: Negative or not required by law. Electronically signed by: Shon Gonzalez M.D. 10/21/2022 7:32 AM
--- NOTE | 2022-10-21 07:54 | CT Scan Report ---
CT abd pelvis IV con only CLINICAL HISTORY: fever, elev lfts TECHNIQUE: Helical axial images of the abdomen and pelvis were obtained and displayed. Automated dose lowering techniques and/or adjustment according to patient size were utilized for this exam. This e xam was performed with intravenous contrast. CT DOSE: 473.75 mGy.cm COMPARISON: Comparison is made to CT abdomen pelvis 10/10/2011 FINDINGS: Lower chest: Bibasilar atelectasis versus scarring is seen. Liver: Unremarkable. No focal lesions are seen. Gallbladder and biliary tree: No calcified gallstones. Normal caliber wall. No intra- or extrahepatic biliary ductal dilation. Pancreas: Unremarkable, no focal lesions. Spleen: Unremarkable. Adrenals: There is a right adrenal nodule measuring 13 mm, somewhat enlarged from prior exam. Kidneys and ureters: Unremarkable. Bladder: Unremarkable. Reproductive organs: Brachytherapy seeds are seen in the prostate. Bowel: Unremarkable appearance of the bowel. The appendix is normal. Lymph nodes Retroperitoneal: Unremarkable. Pelvic: Unremarkable. Mesenteric: Unremarkable. Peritoneum: Normal. Vessels: Unremarkable. Abdominal wall: Unremarkable. Bones: Degenerative changes in the visualized spine. Partial visualization of fractures of the left p osterior ribs. IMPRESSION: 1. No acute abnormalities. 2. Subacute and chronic appearing fractures of the posterior ribs. 3. Right adrenal nodule measuring 13 mm is increased from prior exam where it measured approximately 8 mm. If there is clinical concern, adrenal protocol CT or MRI can be performed. ACT 112: Negative or not required by law. Electronically signed by: Shon Gonzalez M.D. 10/21/2022 7:51 AM
[2022-10-21 08:47] LABS: Albumin Globulin Ratio 1.6 (0.9-2); Albumin Level 3.2 gm/dl (3.4-5.0); BUN Creatinine Ratio 23.5 (10-20); Bilirubin,Total 0.8 mg/dl (0.2-1.0); Creatinine Clr Calc Pharmacy 77.3 ml/min; Est GFR (African American) 105.3 ml/min; Est GFR (Non-African American) 90.8 ml/min; Potassium 3.7 mmol/L (3.5-5.1); Total Protein 5.2 gm/dl (6.0-8.3)
[2022-10-21] MEDS ORDERED: ASPIRIN 81 MG ECTAB PO SCH (09:00)
[2022-10-21] MEDS ORDERED: METOPROLOL SUCC 50MG EXT REL TAB PO SCH (09:00)
[2022-10-21] MEDS ORDERED: LOSARTAN POTASSIUM 25 MG TAB PO SCH (09:00)
[2022-10-21] MEDS ORDERED: OSELTAMIVIR PHOSPHATE 75 MG CAP PO SCH (09:30)
--- NOTE | 2022-10-21 11:04 | Discharge Summary ---
Date of Service October 21, 2022 Admission HPI Per Admitting Provider Kevin is a 77 year old man with a history of DM2, COPD, HTN, and CAD, who presents to the hospital with sudden onset shaking chills during dinner about 8 hours ago. ED workup was notable for tachycardia, WBC of 13.4, lactate of 3.1, elevated transaminases (AST/HPL490/489), alk phos of 140 and serum glucose of 349. UA revealed trace proteinuria, 3+ glucosuria, 1+ ketonuria, but no nitrites or LE. EKG showed sinus tachycardia with rates in the low 100s. CXR showed left lower lobe hazy infiltration. CT abdomen pelvis was negative for acute process. He received 2 IV normal saline boluses of 0.5 L and 1 L. He also received IV cefepime out of concern for pneumonia following the CXR. He received 1 dose of Tamiflu after respiratory panel returned positive for influenza A. On admission, he corroborated ER HPI. ROS + only for fatigue. He denies shortness of breath, cough, chest pain, headache, nausea, vomiting, abdominal pain, constipation, or diarrhea. Admission Exam Per Admitting Provider General: No acute distress HEENT: PERRLA. Normal conjunctiva, anicteric sclera. Oropharynx normal. Respiratory: Normal respiratory effort. Mild bibasilar crackles Cardiovascular: Tachycardic. Regular rhythm. Murmurs, gallops, or rubs. No e owen. GI: Soft abdomen with normal bowel sounds heard on auscultation. Nontender x4 quadrants Neuro: Alert and oriented x3. Principal Diagnosis hyperglycemia secondary to the Influenza Discharge Exam Constitutional: well-appearing, no acute distress HEENT: NCAT, no conjunctival injection CV: regular rhythm, no murmur appreciated, extremities well-perfused, no LE edema Resp: CTABL, no wheezes/rales/rhonchi appreciated, no increased work of breat aamnda GI: soft, nondistended, nontender, BS normoactive MSK: no gross deformities appreciated Skin: warm, dry, no rash appreciated Neuro: alert, oriented, no focal neurologic deficit appreciated Discharge Data Allergies Allergy/AdvReac Type Severity Reaction Status Date / Time No Known Allergies Allergy Verified 10/20/22 21:40 Consultations 10/21/22 00:18 ED Decision to Admit Stat Ordered Studies 10/20/22 22:15 CT abd pelvis IV con only Stat Chest X-Ray 10/20/22 21:34 XR chest 1V portable CLINICAL HISTORY: fever TECHNIQUE: Single frontal radiograph of the chest was obtained. Comparison: None available at the time of this dictation. FINDINGS: Median sternotomy wires are unchanged. Postsurgical changes of coronary bypass noted. Calcified aortic knob is seen. Reticular interstitial opacities are seen. No evidence of pleural effusion or pneumothorax. IMPRESSION: No acute abnormalities and in particular no evidence of pneumonia. ACT 112: Negative or not required by law. Electronically signed by: Shon Gonzalez M.D. 10/21/2022 7:32 AM Abdomen/Pelvis CT 10/20/22 22:15 CT abd pelvis IV con only CLINICAL HISTORY: fever, elev lfts TECHNIQUE: Helical axial images of the abdomen and pelvis were obtained and displayed. Automated dose lowering techniques and/or adjustment according to patient size were utilized for this exam. This exam was performed with intravenous contrast. CT DOSE: 473.75 mGy.cm COMPARISON: Comparison is made to CT abdomen pelvis 10/10/2011 FINDINGS: Lower chest: Bibasilar atelectasis versus scarring is seen. Liver: Unremarkable. No focal lesions are seen. Gallbladder and biliary tree: No calcified gallstones. Normal caliber wall. No intra- or extrahepatic biliary ductal dilation. Pancreas: Unremarkable, no focal lesions. Spleen: Unremarkable. Adrenals: There is a right adrenal nodule measuring 13 mm, somewhat enlarged from prior exam. Kidneys and ureters: Unremarkable. Bladder: Unremarkable. Reproductive organs: Brachytherapy seeds are seen in the prostate. Bowel: Unremarkable appearance of the bowel. The appendix is normal. Lymph nodes Retroperitoneal: Unremarkable. Pelvic: Unremarkable. Mesenteric: Unremarkable. Peritoneum: Normal. Vessels: Unremarkable. Abdominal wall: Unremarkable. Bones: Degenerative changes in the visualized spine. Partial visualization of fractures of the left posterior ribs. IMPRESSION: 1. No acute abnormalities. 2. Subacute and chronic appearing fractures of the posterior ribs. 3. Right adrenal nodule measuring 13 mm is increased from prior exam where it measured approximately 8 mm. If there is clinical concern, adrenal protocol CT or MRI can be performed. ACT 112: Negative or not required by law. Electronically signed by: Shon Gonzalez M.D. 10/21/2022 7:51 AM Hospital Course (1) Hyperglycemia: (2) Leukocytosis: (3) Flu-like symptoms: (4) DM type 2 (diabetes mellitus, type 2): (5) Hypertension: (6) CAD (coronary artery disease): (7) Influenza A: (8) Elevated lactic acid level: (9) Rigors: Plan 77-year-old man who presents with sudden shaking chills. Now admitted for management of hyperglycemia, transaminitis, and influenza A. Hyperglycemia -History of DM2. Takes metformin 1000 mg twice daily, glimepiride 4 mg tablet twice daily. BSG 349 on admission. -Patient reports adherence to medications. However, most recent hemoglobin A1c of 9.02 January 2022, suggesting either nonadherence or poor control on current regimen. Could also be due to recent infection, the patient states he was already improving. -1+ ketonuria, 3+ glucosuria on UA -Held home p.o. meds on admission. -Will need f/u in one week with PCP about DM Influenza A/pneumonia -Respiratory panel positive. Patient reports he had URI last week but got better. -WBC 13.4. Lactate 3.1. Left lower lobe infiltrate -Received 1 dose of Tamiflu, cefepime 2 g x 1 in the ED. * Continue Tamiflu twice daily x5 days Transaminitis/elevated LFTs -AST/ALT 403/489. Alk phos 140, total bilirubin 1.4 -CT abdomen pelvis negative for acute infectious process -No past medical history of liver disease, hepatitis, or cirrhosis. Review of chart indicates that he consumes alcohol less than once a month. -Improved during stay. Repeat in 1 week. Coronary artery disease -History of MT. -Managed on aspirin, metoprolol succinate, losartan, and atorvastatin * Metoprolol succinate 50 mg daily * Losartan 25 mg daily * Atorvastatin 80 mg daily * Aspirin 81 mg daily (2) Leukocytosis: (3) Flu-like symptoms: (4) DM type 2 (diabetes mellitus, type 2): (5) Hypertension: (6) CAD (coronary artery disease): (7) Influenza A: (8) Elevated lactic acid level: (9) Rigors: Total Time Total Time Spent Total Time Spent (In Minutes): 15 Discharge Plan Discharge Items Patient Disposition: Home - Self-Care Reason For Visit: HYPERGLYCEMIA Discharge Diagnosis: hyperglycemia secondary to the Influenza Condition on Discharge: Fair Activity: Resume your previous activity Non-emergency contact: Primary Care Provider Call non-emergency contact if: you have any medication questions, your pain is unusual for you and your temperature is above 101.5 Follow-up/Referrals: Tosha Nelson MD [Primary Care Provider] - 10/31/22 1:00 pm Diet: Carb Consistent or DM2 and Heart Healthy Addtl Attending Provider Instructions: You were admitted to the hospital for hyperglycemia secondary to influenza. You were treated with Tamiflu and controlled your hyperglycemia with medications. A discharge summary will be sent to your primary care physician to ensure continuity of care. Please bring this discharge summary with you to your next office appointment so that your provider can review it at that time. Follow-up appointments: * Make a follow-up appointment with your PCP within the next week. It is very important that you follow up with them shortly after discharge from the hospital. * Keep all your follow-up appointments as already scheduled. If you cannot make an appointment, notify your provider. Medications: Your medication list has been reviewed and reconciled upon discharge to ensure accuracy and continuity of care. An updated list of all your medications is included with your hospital discharge paperwork. Please review this list closely, and make note of any changes. * We sent a new medication called Tamiflu to your pharmacy. Take Tamiflu (75mg) 1 tablet twice a day for 4 days. * If you have any issues filling these prescriptions, please call [phone] and ask to leave a message for Dr. Farah. * Take your medications as instructed; do not skip a dose of your medicines. Make sure all of your doctors know every medicine you are taking (including [id number] medicines, vitamins, and supplements). Call your primary care provider before taking any new medicines (including over- the-counter medicines, vitamins, and supplements), because some of these may interact with your current medications, or may make your symptoms worse. Tell your primary care provider if you cannot afford your medications. CONTACT YOUR PRIMARY CARE PROVIDER if you experience any of the following: * Worsening of symptoms * Fever, chills, or fatigue * Difficulty following your treatment plan, or difficulty taking medications CALL 911 OR GO TO THE EMERGENCY DEPARTMENT if you experience any of the following: * Sudden, severe abdominal pain or nausea/vomiting * Severe chest pain, or chest pain that radiates (moves) to your jaw or arm * Sudden, severe shortness of breath or difficulty breathing Thank you for allowing us to participate in your care. Pending Studies at Discharge: Yes Studies:: blood culture Stand-Alone Forms: [facility], Smoking Cessation Medications and DC Order Prescriptions: New oseltamivir [Tamiflu] 75 mg Capsule 75 mg PO BID 4 Days Qty: 8 0RF Continued (DME) OneTouch Verio test strips Strip See Dose Instructions .ROUTE .MEDSUPPLY Qty: 100 3RF Rx Instructions: test once daily triamcinolone acetonide 0.5 % cream 1 applic topical TID PRN (Reason: LICHEN PLANUS) Qty: 15 5RF atorvastatin 80 mg tablet 80 mg PO HS Qty: 90 3RF metoprolol succinate 50 mg tablet extended release 24 hr 50 mg PO BID Qty: 180 3RF glimepiride 4 mg tablet 4 mg PO BID Qty: 180 3RF losartan 25 mg tablet 25 mg PO QAM Qty: 90 3RF metformin 1,000 mg tablet 1,000 mg PO BID Qty: 180 3RF (DME) lancets [OneTouch Delica Lancets] 33 gauge misc See Dose Instructions .ROUTE .MEDSUPPLY Qty: 100 Rx Instructions: test once daily aspirin [Adult Low Dose Aspirin] 81 mg tablet,delayed release (DR/EC) 81 mg PO QAM desonide 0.05 % cream 1 appln topical BID PRN (Reason: LICHEN PLANUS) Discharge Orders: Discharge Order (Routine); Ordered 10/21/22 Ordered By: Linden Farah Admission Data Admit Date/Time: 10/21/22 01:10 Attending Provider: Viraj Mcduffie Admit Provider: Deanne Butts Primary Care Provider: Tosha Nelson Other Providers: Justin Holcomb Other Interventions: Discharge Summary Assessment (RN) Last Done: 10/21/22 13:35 Supervising Physician Co-Signing Physician Notes I personally examined the patient and verified all rick points of history and exam, discussed case, and agree with decision making with Dr Farah Feeling better. Would like to go home. Extensive discussion on diabetes and lifestyle control as well. Vitals noted, in general he is awake and alert pleasant no distress. HEENT normocephalic atraumatic mucous membranes moist. Lungs clear to auscultation bilaterally no rales rhonchi or wheezes good effort. Skin shows no rashes no pallor or icterus. Neuro without focal deficits. Influenzastable for home. Given age and diabetescontinue Tamiflu for risk reduction Uncontrolled diabetesextensive discussion on the critical role of lifestyle and diabetes control. Also discussed "why to care" ("high sugars clog arteries")discussed utilizing to her postprandial glucoses to learn from food choices, and therefore to minimize carbohydrates that are making his diabetes worse. stable for home, otherwise as above Resident Activity Tracking Resident Involvement: Resident Care Provided Care Provided: Adult Hospital Medicine
--- NOTE | 2022-10-21 13:18 | Communication Note ---
Date of Service: October 21, 2022 By CMS guidelines, a determination that the admission or continued stay is not medically necessary has been made by a member of the UR committee and a ph ysician for this hospital stay, therefore a Code 44 will be completed and the Inpatient admission will be changed to outpatient. Spencer Nuñez MD Member, Utilization Review Committee
--- NOTE | 2022-10-21 15:29 | Electrocardiogram Report ---
Test Reason : Blood Pressure : / mmHG Vent. Rate : 101 BPM Atrial Rate : 101 BPM P-R Int : 168 ms QRS Dur : 062 ms QT Int : 276 ms P-R-T Axes : 103 006 122 degrees QTc Int : 357 ms Poor data quality, interpretation may be adversely affected Sinus tachycardia with Premature supraventricular complexes Anteroseptal infarct (cited on or before 19-OCT-2010) T wave abnormality, consider lateral ischemia Abnormal ECG When compared with ECG of 10-OCT-2011 06:24, Premature supraventricular complexes are now Present Confirmed by Quang Aguilar ([id number]) on 10/21/2022 3:28:55 PM Referred By: REFERRED SELF Confirmed By:Quang Aguilar
--- NOTE | 2022-10-21 18:06 | Billing Data ---
Date of Service October 21, 2022 Coding Level of Care Code HOSP INP/OBS DISCH 30 MIN/LESS
[2022-10-21] MEDS ORDERED: ATORVASTATIN 40 MG TAB PO SCH (21:00)
--- NOTE | 2022-10-21 22:57 | Billing Data ---
Date of Service October 21, 2022 Coding Level of Care Code 64131 INT INP/OBS CARE
== END 2022-10-21 14:36 | disposition home or self-care (01) | DRG 195 ==
LOC: ED 17:59 → 3E 10-21 01:10 → SUATTDRO 10-21 01:10 → 3E 10-21 02:06